=== PATIENT | male | born 1980 | race Caucasian/White ===

== ENCOUNTER → 2018-11-30 | Outpatient (CLI) | payer BC ==
--- NOTE | 2018-11-30 19:02 | REP ---
RIGHT ANKLE, FOUR VIEWS: Four views of the right ankle are performed. There is an avulsion fracture of the medial malleolus which may be old. Fragment measures about 4 x 2 mm. Ankle mortise is anatomic. There are no other significant findings. Electronically Signed by Zhou Miranda MD 12/01/2018 11:15 A
== END ==
LOC: M LRY 15:37
PROVIDERS: ATTEND Physician Assistant
DX: S99.911A Unspecified injury of right ankle, initial encounter (principal); X58.XXXA Exposure to other specified factors, initial encounter; Y92.89 Other specified places as the place of occurrence of the external cause